=== PATIENT | female | born 1965 | race Caucasian/White ===

== ENCOUNTER → 2018-03-20 | Outpatient (CLI) | payer BC ==
[~2018-03-20] VITALS: Ht 157.5 cm; Wt 107.0 kg
[2018-03-20 13:19] VITALS: Ht 157.5 cm; Wt 107.0 kg
== END | disposition home or self-care (01) ==
LOC: C.NRED 14:16
PROVIDERS: ATTEND Internal Medicine
DX: E11.9 Type 2 diabetes mellitus without complications (principal); E78.00 Pure hypercholesterolemia, unspecified

== ENCOUNTER → 2018-04-19 | Outpatient (CLI) | payer BC ==
[~2018-04-19] VITALS: Ht 157.5 cm; Wt 100.5 kg
[2018-04-19 11:03] VITALS: Ht 157.5 cm; Wt 100.5 kg
== END | disposition home or self-care (01) ==
LOC: C.NRED 11:58
PROVIDERS: ATTEND Internal Medicine
DX: E11.9 Type 2 diabetes mellitus without complications (principal); E78.00 Pure hypercholesterolemia, unspecified

== ENCOUNTER → 2018-05-05 | Outpatient (CLI) | payer BC ==
--- NOTE | 2018-05-05 15:42 | MAMMOGRAPHY REPORT ---
BILATERAL DIGITAL SCREENING MAMMOGRAM TOMOSYNTHESIS WITH CAD: 05/05/2018 CLINICAL HISTORY: Routine screening. Patient has no complaints. Routine screening. Patient has no com plaints. TECHNIQUE: The study was acquired using full field digital technology and interpreted from soft copy. Breast tomosynthesis in addition to standard 2D mammography was performed. Current study was also ev aluated with a Computer Aided Detection (CAD) system. COMPARISON: No prior exams were available for comparison. BREAST COMPOSITION: There are scattered areas of fibroglandular density in both breasts. FINDINGS: No suspicious masses, calcifications, or areas of architectural distortion are noted in either breast . IMPRESSION: ACR BI-RADS CATEGORY 1: NEGATIVE There is no mammographic evidence of malignancy. A 1 year screening mammogram is recommended.( 019) The patient will receive written notification of the results. Some breast cancers are not detected with mammography. A negative mammographic report should not apryl y biopsy if a clinically suggestive mass is present. Luann Mathew M.D. ah/:05/05/2018 14:42:16 Head Athletic Trainer: RT Destini(R)(M), [facility] letter sent: Normal 1/2 BI-RADS Code: ACR BI-RADS Category 1: Negative
== END | disposition home or self-care (01) ==
LOC: C.MAMM 13:51
PROVIDERS: ATTEND Internal Medicine
DX: Z12.31 Encounter for screening mammogram for malignant neoplasm of breast (principal)

== ENCOUNTER 2022-03-08 05:48 | Observation (INO) ==
--- NOTE | 2022-03-03 14:00 | Anesthesiology Consultation ---
Date of Service March 03, 2022 Assessment & Plan (1) Encounter for pre-operative examination: - COVID screening: Per assessment on 03/03: No known COVID-19 positive contacts or current COVID-19 related symptoms. Travel screen negative. Patient vaccinated . Surgeon arranging preop COVID testing. Awaiting results. - Check [facility] AM DOS Chart Review Chart Review: Acceptable Risk for Surgery and Patient NOT seen in Pre Admission Testing History Surgery Operation Date: 03/08/22 10:15 Proposed Procedures p Bilateral Breast Reduction - Vania Escobedo MD Height/Weight Height: 5 ft 2 in Weight: 90.265 kg Allergies Allergy/AdvReac Type Severity Reaction Status Date / Time No Known Allergies Allergy Mild Unverified 03/03/22 11:43 Medications Home Medications Medication Instructions Recorded Confirmed Last Taken atorvastatin 10 mg tablet 10 mg PO QAM 07/07/21 03/03/22 Unknown metformin 500 mg tablet 500 mg PO BID 07/07/21 03/03/22 Unknown cephalexin 500 mg capsule 500 mg PO TID 7 Days #21 cap 03/02/22 03/03/22 Unknown oxycodone-acetaminophen 5 mg-325 1 tab PO Q4H PRN 3 Days #18 tab 03/02/22 03/03/22 Unknown mg tablet (Percocet) Past Medical History Medical History Chronic back pain Diabetes mellitus, type 2 NIDDM Past Family History Family History Grandmother (Maternal) Diabetes Grandfather (Maternal) Colorectal cancer Mother Lung cancer Other Cancer Past Surgical History Surgical History History of bilateral tubal ligation History of section History of colonoscopy Hx of wisdom tooth extraction Social History Smoking Status: Never smoker Do You Dip or Chew Tobacco: No Hx Alcohol Use: Yes Alcohol type: wine alcohol intake frequency: holidays/special occasions only Hx Substance Use: No substance use type: does not use Lab Results Anesthesia Preop Results Results Anesthesia Widget: WBC 7.33 K/uL (4.8-10.8) 03/02/22 Hgb 13.4 g/dL (12.0-16.0) 03/02/22 Hct 40.7 % (37-47) 03/02/22 Plt 371 K/uL (130-400) 03/02/22 Na 141 mmol/L (136-145) 03/02/22 K 4.0 mmol/L (3.5-5.1) 03/02/22 Cl 107 mmol/L (98-107) 03/02/22 CO2 28 mmol/L (21-32) 03/02/22 BUN 20 mg/dl (6-23) 03/02/22 Creat 0.54 mg/dl (0.6-1.2) L 03/02/22 Glucose Level 108 mg/dl (70-99(Fasting)) H 03/02/22 PT 10.3 Seconds (9.0-12.0) 03/02/22 INR 1.0 (0.9-1.1) 03/02/22 Testing Electrocardiogram Date: 03/02/22 NSR at 65bpm. PRWP, consider anterior NV vs. lead placement vs. LVH. No SOB with stairs, physical limitations or cardiopulmonary complaints noted per PAT RN interview from 03/03/22*
[2022-03-08] MEDS ORDERED: LR 15ML/HR IV SCH (06:00)
[2022-03-08] MEDS ORDERED: ceFAZolin 2000MG 2,000 MG/15 ML SYR IV SCH (06:00)
--- NOTE | 2022-03-08 06:51 | History & Physical Bridge Note ---
Date of Service March 08, 2022 History & Physical Bridge Note I have examined the patient, reviewed the History & Physical and in the interval since the performance of the History & Physical I have noted the following changes of clinical significance: no changes noted
[2022-03-08] MEDS ORDERED: ATROPINE SULFATE 0.1 MG/ML 10ML SYR IV PRN (06:52)
[2022-03-08] MEDS ORDERED: fentaNYL citrate 100 MCG/2 ML VIAL IV PRN (06:52)
[2022-03-08] MEDS ORDERED: ONDANSETRON INJ 2 MG/ML 2 ML VIAL IV PRN (06:52)
[2022-03-08] MEDS ORDERED: LABETALOL HCL IV 5 MG/ML 20ML IV PRN (06:52)
[2022-03-08] MEDS ORDERED: HYDROmorphone INJ 1 MG/ML SYRINGE IV PRN (06:52)
[2022-03-08] MEDS ORDERED: ePHEDrine sulfate 50 MG/ML AMP IV PRN (06:52)
[2022-03-08] MEDS ORDERED: NALOXONE HCL 0.4 MG/1 ML VIAL/CARP IV PRN (06:52)
[2022-03-08] MEDS ORDERED: PROMETHAZINE HCL 12.5 MG in SODIUM CHLORIDE 0.9% 50 ML IV PRN (06:52)
[2022-03-08] MEDS ORDERED: FLUMAZENIL 0.1 MG/1 ML 10 ML VIAL IV PRN (06:52)
[2022-03-08] MEDS ORDERED: MIDAZOLAM HCL 1 MG/ML 2ML VIAL ONE (06:59)
[2022-03-08] MEDS ORDERED: fentaNYL citrate 100 MCG/2 ML VIAL ONE (06:59)
[2022-03-08] MEDS ORDERED: LIDOCAINE 2% 2 ML VIAL/AMP(20MG/ML) INFIL ONE (07:03)
[2022-03-08] MEDS ORDERED: PROPOFOL IV EMULSION 10 MG/ML 20 ML VIAL IV ONE (07:03)
[2022-03-08] MEDS ORDERED: ROCURONIUM BROMIDE 10 MG/ML 5 ML VIAL IV ONE ×6 (07:03→10:36)
[2022-03-08] MEDS ORDERED: DEXAMETHASONE SOD INJ 4 MG/ML VIAL ONE (07:03)
[2022-03-08] MEDS ORDERED: ONDANSETRON INJ 2 MG/ML 2 ML VIAL ONE (07:03)
[2022-03-08] MEDS ORDERED: LIDOCAINE 1% LOCAL 20 ML VIAL ONE (07:20)
[2022-03-08] MEDS ORDERED: LIDOCAINE 1%/EPINEPHRINE 1:100,000 50 ML VIAL ONE (07:21)
[2022-03-08] MEDS ORDERED: BUPIVACAINE 0.25% 30 ML VIAL ONE (07:21)
[2022-03-08] MEDS ORDERED: ePHEDrine sulfate 50 MG/ML AMP ONE (07:59)
[2022-03-08] MEDS ORDERED: TISSEEL FIBRIN SEALANT 4ML TOP ONE (08:55)
[2022-03-08] MEDS ORDERED: NEOSTIGMINE METHYLSULFATE 1 MG/ML 10ML VIAL ONE (10:40)
[2022-03-08] MEDS ORDERED: GLYCOPYRROLATE 0.2 MG/ML VIAL ONE (10:40)
[2022-03-08] MEDS ORDERED: HYDROmorphone INJ 1 MG/ML SYRINGE ONE (10:53)
--- NOTE | 2022-03-08 11:26 | Post Operative Brief Note ---
PG Immediate Post Op with CF Date of Surgery March 08, 2022 Pre & Post Diagnosis Operation Date: 03/08/22 07:30 Pre-Op Diagnosis: Symptomatic Macromastia Post-Op Diagnosis: Symptomatic Macromastia I identified the patient and participated in the time-out.: Yes Procedure Operation Date: 03/08/22 07:30 Actual Procedures p Bilateral Breast Reduction with Free Nipple Graft(Bilateral) - Vania Escobedo MD Surgeon Vania Escobedo MD [employer] Naida Perry PA-C Estimated Blood Loss 75 Findings Consistent with Post-Op Diagnosis Specimens Specimen Description: A. Left breast tissue (897 grams) B. Right breast tissue Drains Jesus-Wolfe Drain (DONG drains x2 inserted by Dr. Escobedo during procedure )
[2022-03-08] MEDS ORDERED: oxyCODONE/ACETAMINOPHEN 5mg/325mg TAB PO PRN ×2 (11:41)
--- NOTE | 2022-03-08 12:21 | Anesthesiology Progress Note ---
Date of Service March 08, 2022 Anesthesia Post Procedure Vital Signs Vital Signs: Temp Pulse Pulse Resp BP Pulse Ox 03/08/22 12:10 85 16 127/80 100 03/08/22 12:00 85 16 140/75 99 03/08/22 11:50 85 16 135/73 99 03/08/22 11:42 36.0 C L 93 H 16 129/78 98 03/08/22 06:04 36.9 C 72 20 129/76 99 Transfer of Care Handoff Completed per policy Notes Mental Status: alert / awake / arousable Patient Amnestic to Procedure: Yes Nausea / Vomiting: adequately controlled Pain: adequately controlled Airway Patency, RR, SpO2: stable & adequate BP & HR: stable & adequate Hydration State: stable & adequate Anesthetic Complications: no major complications apparent
[2022-03-08] MEDS ORDERED: MoRPHine SULFATE 4 MG/ML 1 ML CARP\\VIAL IV PRN (12:23)
[2022-03-08] MEDS ORDERED: MoRPHine SULFATE 2 MG/ML CARP IV PRN (12:23)
[2022-03-08] MEDS ORDERED: D5W AND 1/2NSS + 20MEQ KCL 20 MEQ/1,000 ML BAG IV SCH (12:30)
[2022-03-08] MEDS ORDERED: ONDANSETRON 4 MG OD TAB PO PRN (12:31)
[2022-03-08] MEDS ORDERED: PHARMACY GLYCEMIC MGMT CONSULT PRN (17:19)
--- NOTE | 2022-03-08 17:26 | Operative Report ---
PG Post Operative Report Pre & Post Diagnosis Operation Date: 03/08/22 07:30 Pre-Op Diagnosis: Symptomatic Macromastia Post-Op Diagnosis: Symptomatic Macromastia I identified the patient and participated in the time-out.: Yes Procedure Operation Date: 03/08/22 07:30 Actual Procedures p Bilateral Breast Reduction with Free Nipple Graft(Bilateral) - Vania mendieta MD Surgeon Vania Escobedo MD Store Operations Manager Naida Perry PA-C Estimated Blood Loss 75 Findings Consistent with Post-Op Diagnosis Specimens left breast 897 grams, right breast 851 grams Drains DONG x2 Anesthesia Type General Complications none Indications back, neck and shoulder pain secondary to macromastia Description of Procedure The risks, benefits and alternatives of the procedure were explained to the patient who agreed and signed consent. She was identified and marked in the preoperative holding area. She was brought to the operating room where she was positioned supine and placed under general anesthesia without incident. Surgical site markings were again reassessed. I began with the left breast. 1% lidocaine with epinephrine was used to anesthetize the planned incisions as well as the nipple areolar complex. A breast tourniquet was applied using the Isela clamp and lap sponge. A 42 mm cookie cutter was used to circumscribe the nipple-areolar complex. The nipple-areolar complex was then removed as a full thickness graft and placed on the back table in saline soaked sponge. At this point, tourniquet was released and the inframammary fold incision was made using 15 blade scalpel. Electrocautery was used to deepen the incision through subcutaneous fat and breast parenchyma down to chest wall. Care was taken to perform this in a bevelled direction ligating vessels as needed and achieving hemostasis with electrocautery. Once the breast was mostly undermined, the superior incision was then made to the inferior aspect of the keyhole incision. This was performed using a 15 blade scalpel. Incision was then deepened using electrocautery again full thickness through the breast. A similar incision was made laterally. Centrally, the skin was incised using electrocautery and additional breast parenchyma was resected again in a beveled fashion in order to retain some projection of the breast. Tissue was passed off for weighing. Additional resection was performed until we achieved the desired size and the wound was able to be closed with minimal tension. Total resection weight on the left was 897 grams. Hemostasis was achieved with electrocautery 0.25% Marcaine plain was used to anesthetize the incisions as well as pectoralis fascia. A 15 [place] Ronnie drain was brought out through a separate stab incision laterally toward the axilla. The keyhole was then incised using 15 blade scalpel and deepithelialized. T-junction was brought together using 2-0 Vicryl suture. Closure was begun first lateral to medial using 2-0 Vicryl deep dermal sutures and then medial to lateral using 2-0 Vicryl deep dermal sutures. Vertical limb was closed using a combination of 2-0 Vicryl deep dermal sutures and a 3-0 PDS interrupted dermal sutures. The inframammary fold incision was closed using 2-0 PDO deep dermal running Quill suture. The vertical limb was then closed using 3-0 Monocryl running subcuticular suture. Nipple areolar complex was inspected and thinned using a curved iris scissor. It was placed in the recipient bed and sutured into place using 4-0 silk tie over bolster sutures and 4-0 chromic interrupted sutures. A similar procedure was undertaken on the right side. Total resection weight was 851 grams on the right. There was reasonable symmetry at the close of the case. No complications. Dermabond Prineo was applied to the incisions. Dry dressing followed by a surgical bra were placed. The patient was awakened and transferred to the recovery room in satisfactory condition. Naida Perry PA-C was present and scrubbed throughout the entire procedure and was instrumental in providing retraction, preparing the nipple graft and assisting in simultaneous wound closure. I attest to the content of the Intraoperative Record and any orders documented therein. Any exceptions are noted below.
[2022-03-08] MEDS ORDERED: DEXTROSE 50% 50 ML SYRINGE IV PRN (18:00)
[2022-03-08] MEDS ORDERED: GLUCOSE 40% GEL 15 GM TUBE PO PRN (18:00)
[2022-03-08] MEDS ORDERED: CARBOHYDRATES FOR HYPOGLYCEMIA PO PRN (18:00)
[2022-03-08] MEDS ORDERED: GLUCOSE 10 TABS/TUBE PO PRN (18:00)
[2022-03-08] MEDS ORDERED: GLUCAGON FOR INJ 1 MG VIAL IM PRN (18:00)
[2022-03-08] MEDS ORDERED: INSULIN ASPART PER UNIT SC SCH (18:00)
[2022-03-08] MEDS: ACETAMINOPHEN 325 MG TAB PO PRN (20:04)
[2022-03-08] MEDS: GABAPENTIN 100 MG CAP PO SCH (20:17)
[2022-03-08] MEDS: INSULIN ASPART PER UNIT SC SCH (20:50)
[2022-03-09] MEDS ORDERED: INSULIN ASPART PER UNIT SC SCH (02:00)
[2022-03-09] MEDS: ACETAMINOPHEN 325 MG TAB PO PRN (06:13)
[2022-03-09 06:36] LABS: Estimated Average Glucose 131 mg/dl; Hemoglobin A1C 6.2 % (4.5-5.6)
--- NOTE | 2022-03-09 08:52 | Surgery Progress Note ---
Date of Service March 09, 2022 Assessment & Plan (1) Status post breast reduction: Plan: Ruth is POD #1. She is doing very well. Her pain is controlled. Bilateral DONG drains removed and Optifoam dressings placed. She is tolerating a regular diet, voiding on her own, and ambulating without issue. She is ok for discharge to home with office follow-up in 1 week for bolster removal. Discharge instructions reviewed thoroughly with her. She is aware that she is n ot allowed to shower until bolsters are removed. She is aware that she is to keep surgical bra in place. She was instructed to call the office with any questions or concerns. Admission and Anticipated Discharge Date Admission Date: March 08, 2022 Subjective Ruth is POD #1. She is doing well. She denies pain. She reports that she is tolerating a regular diet, ambulating without issue. She denies nausea. Physical Exam Physical Exam: On physical exam- surgical bra in place- unzipped to view incisions. Bilateral incisions are intact. There is no evidence of active bleeding or signs of dehiscence. BL nipple bolsters in place. Bilateral DONG drains with serosang drainage in place. Bilateral drains removed without issue and optifoam dressings placed. Bra reattached. Results & Data ([facility]) Vital Signs (Past 12 Hours) Vital Signs Temp Pulse Resp BP Pulse Ox 03/09/22 07:42 36.6 C 61 16 119/74 97 03/09/22 03:42 36.6 C 65 18 115/77 96 03/09/22 00:15 36.6 C 82 18 109/70 96 03/08/22 23:24 36.6 C 72 18 137/80 96 03/08/22 22:00 36.6 C 75 18 138/82 95 03/08/22 21:02 36.7 C 79 18 140/84 98 PG Care Time/CCT Total # of Minutes Spent Total Time Spent with Patient: Total time spent is greater than 50% in coordination of care (as documented) at patient's floor/unit and/or counseling patient: Coding Level of Care Code None Diagnoses Status post breast reduction Z98.890
[2022-03-09] MEDS: INSULIN ASPART PER UNIT SC SCH (08:59)
[2022-03-09] MEDS: GABAPENTIN 100 MG CAP PO SCH (09:00)
--- NOTE | 2022-03-09 13:22 | Discharge Summary ---
Date of Service March 09, 2022 Admission HPI Per Admitting Provider Please see admission H and P. Admission Exam Per Admitting Provider Please see admission H & P. Principal Diagnosis Bilateral Symptomatic Macromastia Discharge Exam On physical exam- surgical bra in place- unzipped to view incisions. Bilateral incisions are intact. There is no evidence of active bleeding or signs of dehiscence. BL nipple bolsters in place. Bilateral DONG drains with serosang drainage in place. Bilateral drains removed without issue and optifoam dressings placed. Bra reattached. Discharge Data Allergies Allergy/AdvReac Type Severity Reaction Status Date / Time No Known Allergies Allergy Mild Verified 03/08/22 06:09 Procedures Performed Operation Date: 03/08/22 07:30 Actual Procedures p Bilateral Breast Reduction with Free Nipple Graft(Bilateral) - Vania Escobedo MD Ordered Studies 03/08/22 05:00 US - OR guided needle placemen Routine Hospital Course (1) Status post breast reduction: Ruth is a 56-year-old female with Bilateral Symptomatic Macromastia. She was taken to the OR and underwent Bilateral Breast Reduction with Free Nipple Graft. There were no intraoperative complications. She was taken to recovery and transferred to med/surg for observation. On POD #1, she was feeling very good. She denied pain or post-op nausea. She was tolerating a regular diet, voiding on her own, and ambulating without issue. On exam, her vital signs are stable. Her incisions were clean, dry, and intact. Bilateral nipple bolsters were in place. There were no signs of active bleeding. Her drains were removed without issue at bedside and Optifoam dressings were placed. She was discharged home with instructions to follow-up in the office in 1 week for bolster removal. All questions were answered. She was encouraged to call with any questions or concerns. Total Time Total Time Spent Total Time Spent (In Minutes): 5 Discharge Plan Discharge Items Patient Disposition: Home - Self-Care Reason For Visit: Symptomatic Macromastia Discharge Diagnosis: s/p bilateral breast reduction Activity: As commented below Non-emergency contact: Surgeon Call non-emergency contact if: you have any medication questions, your pain is not controlled, you have a fever, your wound has increased redness, your wound has increased drainage and your wound pain has increased Follow-up/Referrals: Naida Perry PA-C [Physician Nanoelectronics Engineer] - 03/15/22 11:00 am Bam Ortez MD [Primary Care Provider] - Diet: Regular Addtl Attending Provider Instructions: ACTIVITY RECOMMENDATIONS: __Normal activities _x_No bending, lifting or straining. Keep arms at shoulder height or below __No driving __Driving allowed when you are off pain medications _x_Walking permitted __You should have help at home for ___ days DRESSINGS: __No dressings required _x_Keep dressings dry/in place until first office visit __Remove dressings ___ and leave dressings off __Apply ice ___ days __Remove dressings and reapply garment __Apply antibiotic ointment (Bacitracin, Neosporin, etc) to wounds 3-4 times/day for 10 days BATHING: x__Keep dressings dry _x_Sponge bathing permitted away from surgical area __Showering permitted _x_No swimming, hot tubs or soaking in a tub MEDICATIONS: Resume previous medications unless instructed otherwise by your surgeon. _x_Do not use aspirin, Motrin, Advil or Ibuprofen as these may promote bleeding. Please use Tylenol. _x_Prescription(s) provided: pain medication and antibiotics were provided at your last office visit SPECIAL CARE INSTRUCTIONS: * It is normal to have a mild fever after surgery. If your temperature is higher than 101.5 degrees F, please call the office at [phone]. * Constipation is a typical side effect of pain medication. An [id number] stool softener will help relieve this. * Leaking around surgical drains may occur and should not cause concern. Sometimes these drains become clogged. If this happens, remove the bulb and milk the clot out of the tube, then replace the bulb. * Drainage from wounds after liposuction is normal and should be expected. Garments will become soiled. You should protect furniture and bedding. This drainage should mostly subside within 2-3 days. Leave garments in place unless instructed to remove them. * If you have unusual drainage from a wound or are concerned you have an infection or have any questions or concerns, please call the office at [phone]. FOLLOW UP VISIT: If not already scheduled, please call the office, , when you return home after surgery to schedule an appointment to be seen in 1 week. Pending Studies at Discharge: Yes Stand-Alone Forms: My [facility] Medications and DC Order Prescriptions: Continued atorvastatin 10 mg tablet 10 mg PO QAM RF: 0 cephalexin 500 mg capsule 500 mg PO TID 7 Days Qty: 21 RF: 0 oxycodone-acetaminophen [Percocet] 5-325 mg tablet 1 tab PO Q4H PRN (Reason: pain) 3 Days Qty: 18 RF: 0 Discontinued metformin 500 mg tablet 500 mg PO BID RF: 0 Discharge Orders: Discharge Order (Routine); Ordered 03/09/22 Ordered By: Hanane Sandoval/Other Patient Handouts: Managing Type 2 Diabetes Admission Data Admit Date/Time: 03/08/22 12:23 Attending Provider: Vania Escobedo Admit Provider: Vania Escobeod Primary Care Provider: Bam Ortez Other Interventions: Discharge Summary Assessment (RN) Last Done: 03/09/22 10:00 Coding Level of Care Code 51008 OBS Care - Discharge Diagnoses Status post breast reduction Z98.890
== END 2022-03-09 11:26 | disposition home or self-care (01) ==
LOC: ASU 05:48 → 3E 05:48
DX: E11.9 Type 2 diabetes mellitus without complications; N60.11 Diffuse cystic mastopathy of right breast; Z79.84 Long term (current) use of oral hypoglycemic drugs; N60.12 Diffuse cystic mastopathy of left breast